=== PATIENT | male | born 1995 | race African-American/Black ===

== ENCOUNTER 2017-04-12 15:52 | Emergency (ER) | payer SELFPAY ==
[~2017-04-12] VITALS: Ht 185.4 cm; Wt 100.0 kg
[~2017-04-12 15:52] MED LIST: CIPROFLOXACN500 MG PO; NAPROSYN500 MG PO; PROMETHAZINE/COD1 ML PO; ROBITUSSIN200 MG/10 PO
[2017-04-12] MEDS ORDERED: PROMETHAZINE/COD1 ML PO (16:31)
[2017-04-12] MEDS ORDERED: ZITHROMAX250 MG PO (17:49)
[2017-04-12] MEDS ORDERED: TYLENOL & COD12.5 ML PO (17:49)
[2017-04-12 17:50] LABS: INFLUENZA A NONE DETECTED (NONE DETECT); INFLUENZA B NONE DETECTED (NONE DETECT)
[2017-04-12 18:19] VITALS: BP 123/61
== END 2017-04-12 18:19 | disposition home or self-care (01) | DRG 153 ==
LOC: ED 15:52
PROVIDERS: Emergency Medicine
DX: J06.9 Acute upper respiratory infection, unspecified (principal); F17.210 Nicotine dependence, cigarettes, uncomplicated

== ENCOUNTER 2017-10-21 07:44 | Emergency (ER) | payer OTHER ==
[~2017-10-21] VITALS: Ht 185.4 cm; Wt 75.0 kg
[~2017-10-21 07:44] MED LIST changes: +TYLENOL & COD12.5 ML PO; +ZITHROMAX250 MG PO
[2017-10-21] MEDS ORDERED: HYDROCO/APAP1 T13 PO (07:58)
[2017-10-21 08:44] LABS: HEMATOCRIT 43.7 % (39.0-50.0); HEMOGLOBIN 14.5 g/dl (14.0-18.0); IMMATURE GRANULOCYTES 0.2 % (0.0-1.0); MEAN CELL VOLUME 79.5 fL CALC (80.0-100.0); MEAN CORPUSCULAR HGB 26.4 pG CALC (26.0-32.0); MEAN CORPUSCULAR HGB CONC 33.2 g/L CALC (32.0-36.0); NEUT# 2.86 thou/uL (1.82-7.42); RED BLOOD COUNT 5.5 mill/uL (4.70-6.10); RED CELL DISTRI WIDTH 14.4 % (11.5-15.5)
[2017-10-21 08:59] LABS: ANION GAP 15 (6-22 (CALC)); BUN 12 mg/dL (9-20); BUN/CREATININE RATIO 15 (12-20 (CALC)); CARBON DIOXIDE 25 mmol/l (22-30); CHLORIDE 108 mmol/l (95-108); CREATININE 0.8 mg/dL (0.7-1.3); GFR > 60 ML/MIN (>=60 (CALC)); GFR FOR AFR.AMER. > 60 ML/MIN (>=60 (CALC)); GLUCOSE 103 mg/dL (75-110); POTASSIUM 4.2 mmol/l (3.5-5.1); SODIUM 144 mmol/l (137-146)
[2017-10-21 14:17] VITALS: BP 140/89
== END 2017-10-21 14:18 | disposition left against medical advice (07) | DRG 392 ==
LOC: ED 07:44
PROVIDERS: Family Medicine
DX: R10.32 Left lower quadrant pain (principal); F17.210 Nicotine dependence, cigarettes, uncomplicated; M25.512 Pain in left shoulder; M25.522 Pain in left elbow; M25.552 Pain in left hip; R51 Headache; M54.2 Cervicalgia; V09.9XXA Pedestrian injured in unspecified transport accident, initial encounter; Y92.410 Unspecified street and highway as the place of occurrence of the external cause; Z91.19 Patient's noncompliance with other medical treatment and regimen